=== PATIENT | male | born 1960 | race Caucasian/White ===

== ENCOUNTER 2019-10-31 07:18 | Outpatient (CLI) | payer BC, OTHER ==
[2019-11-01 14:55] LABS: SARS-CoV-2 MS2 Positive; SARS-CoV-2 N Gene Negative; SARS-CoV-2 S Gene Negative; SARS-CoV-2 by NAA Not Detected (NotDetected); SARS-CoV-2 orf1ab Negative
== END 2019-10-31 07:19 | disposition home or self-care (01) ==
LOC: LABBT 07:18
PROVIDERS: ATTEND Internal Medicine Cardiovascular Disease
DX: I48.91 Unspecified atrial fibrillation (principal); Z20.828 Contact with and (suspected) exposure to other viral communicable diseases
CPT/HCPCS: 87635; U0003

== ENCOUNTER 2019-11-05 09:33 | Day surgery (SDC) | payer BC ==
[2019-11-03 12:27] VITALS: BMI 34.3
[2019-11-05] MEDS ORDERED: PROPOFOL 200 MG/20 ML VIAL ONE (10:27)
--- NOTE | 2019-11-05 14:00 | OP ---
DATE OF PROCEDURE: 11/05/2019 PREOPERATIVE DIAGNOSIS: Atrial flutter. POSTOPERATIVE DIAGNOSIS: Sinus rhythm. PROCEDURE PERFORMED: Synchronized cardioversion at 100 joules. COMPLICATIONS: None. ESTIMATED BLOOD LOSS: Zero. DESCRIPTION OF PROCEDURE: The patient was consented for the procedure. I discussed the procedure in full detail with Mr. Aragon. Risks include, not limited to the following: Stroke, need for temporary pacemaker, failed cardioversion or need for repeat cardioversion. All questions were answered. Given the above, the patient agreed to proceed with above procedure. The patient did state he had not missed a single dose of anticoagulation therapy over the last 4 weeks. He has been on flecainide. Synchronized cardioversion was successful at 100 joules. IMPRESSION: Successful synchronized cardioversion. Job ID: [id number]
--- NOTE | 2019-11-05 15:14 | EKG ---
Test Reason : POST CARDIOVERSION Blood Pressure : / mmHG Vent. Rate : 059 BPM Atrial Rate : 059 BPM P-R Int : 206 ms QRS Dur : 098 ms QT Int : 474 ms P-R-T Axes : 030 -12 013 degrees QTc Int : 469 ms Sinus bradycardia Otherwise normal ECG Confirmed by SANDOR PORTILLO ([id number]) on 11/05/2019 3:14:27 PM Referred By: [email or web address] Confirmed By:SANDOR PORTILLO
== END 2019-11-05 14:05 | disposition home or self-care (01) ==
LOC: CCL 09:33
PROVIDERS: ATTEND Internal Medicine Cardiovascular Disease
PROC: 5A2204Z Restoration of Cardiac Rhythm, Single (ICD-10-PCS; principal; 2019-11-05)
DX: I48.92 Unspecified atrial flutter (principal); I48.91 Unspecified atrial fibrillation; I10 Essential (primary) hypertension; G47.33 Obstructive sleep apnea (adult) (pediatric); K21.9 Gastro-esophageal reflux disease without esophagitis; J45.909 Unspecified asthma, uncomplicated; G62.9 Polyneuropathy, unspecified; Z79.01 Long term (current) use of anticoagulants; Z79.899 Other long term (current) drug therapy
CPT/HCPCS: 92960; 93005; 93010; J2704

== ENCOUNTER 2020-07-16 16:30 | Outpatient (CLI) | payer BC | END 2020-07-16 16:31 | disposition home or self-care (01) | LOC: SLEEPLAB 16:30 | PROVIDERS: ATTEND Family Medicine | DX: G47.33 Obstructive sleep apnea (adult) (pediatric) (principal); R06.83 Snoring; R35.1 Nocturia; K21.9 Gastro-esophageal reflux disease without esophagitis; J45.909 Unspecified asthma, uncomplicated; G47.10 Hypersomnia, unspecified; G62.9 Polyneuropathy, unspecified; I10 Essential (primary) hypertension | CPT/HCPCS: 95806 ==

== ENCOUNTER → 2022-05-19 | Outpatient (CLI) | payer BC | LOC: SLEEPLAB 19:00 | PROVIDERS: ATTEND Otolaryngology Otolaryngic Allergy | DX: G47.33 Obstructive sleep apnea (adult) (pediatric) (principal) | CPT/HCPCS: 95810; 95977 ==